=== PATIENT | male | born 1985 | race Caucasian/White ===

== ENCOUNTER 2021-11-05 20:22 | Emergency (ER) | payer MEDICAID ==
[~2021-11-05] VITALS: Ht 175.3 cm; Wt 106.0 kg
[2021-11-05] MEDS ORDERED: IBUPROFEN 800MG TABLET PO ONE (22:15)
[2021-11-05 22:39] VITALS: BP 106/77
[2021-11-05 23:39] LABS: BASOPHILS % 0.5 % (0.0-2.0); EOSINOPHILS % 1.4 % (0.0-5.0); HEMATOCRIT. 42.6 % (42.0-52.0); LYMPHOCYTES % 42.6 % (20.0-50.0); MEAN CORPUSCULAR HEMOGLOBIN 32.2 pg (28.0-32.0); MEAN CORPUSCULAR VOLUME 91.5 fL (80.0-94.0); MEAN PLATELET VOLUME 8.2 fl (7.4-10.4); MONOCYTES % 8.3 % (2.0-8.0); NEUTROPHILS % 47.2 % (40.0-76.0); PLATELET 270 x1000/uL (130-400); RED BLOOD CELL COUNT 4.66 mill/uL (4.7-6.1); RED CELL DISTRIBUTION WIDTH 12.4 % (11.6-14.6)
[2021-11-05 23:42] LABS: CHLORIDE 107 mEq/L (98-107)
[2021-11-06 00:06] LABS: CLARITY URINE CLEAR (CLEAR); COLOR URINE YELLOW (YELLOW); KETONES URINE NEGATIVE (NEGATIVE); LEUKOCYTE ESTERASE URINE NEGATIVE (NEGATIVE); NITRITE URINE NEGATIVE (NEGATIVE); OCCULT BLOOD URINE NEGATIVE (NEGATIVE); PH URINE 5.5 (4.5-8.0); PROTEIN URINE NEGATIVE (NEGATIVE); SPECIFIC GRAVITY URINE 1.016 (1.005-1.030); UROBILINOGEN URINE 0.2 E.U./dL (0.2-1.0)
== END 2021-11-06 00:47 | disposition home or self-care (01) ==
LOC: ER 20:22
DX: R10.12 Left upper quadrant pain (principal); R50.9 Fever, unspecified; R05.9 Cough, unspecified; R09.81 Nasal congestion
CPT/HCPCS: 36415; 71045; 80053; 81003; 85025; 99284